=== PATIENT | female | born 1960 | race Caucasian/White ===

== ENCOUNTER 2021-10-21 10:40 | Emergency (ER) | payer SELFPAY ==
[~2021-10-21] VITALS: Ht 165.1 cm; Wt 95.3 kg
[2021-10-21 13:35] VITALS: BP 145/71
[2021-10-21] MEDS ORDERED: KETOROLAC TROMETH 60MG/2ML VIAL IM ONE (14:00)
[2021-10-21] MEDS ORDERED: METH750T22 PO (14:18)
[2021-10-21] MEDS ORDERED: IBUP800T27 PO (14:18)
== END 2021-10-21 14:25 | disposition home or self-care (01) ==
LOC: ER 10:40 → EDBD 10:40 → ER 14:25
DX: S16.1XXA Strain of muscle, fascia and tendon at neck level, initial encounter (principal); S39.012A Strain of muscle, fascia and tendon of lower back, initial encounter; V43.52XA Car driver injured in collision with other type car in traffic accident, initial encounter; Y93.89 Activity, other specified; Y92.410 Unspecified street and highway as the place of occurrence of the external cause; Y99.8 Other external cause status
CPT/HCPCS: 72125; 72131; 96372; 99284; J1885